=== PATIENT | male | born 1970 | race African-American/Black ===

== ENCOUNTER 2016-12-16 17:41 | Emergency (ER) | payer MEDICAID ==
[~2016-12-16] VITALS: Ht 182.9 cm; Wt 87.0 kg
[~2016-12-16 17:41] MED LIST: FLUT1DIS3 INH; albuterol; prozac; thorazine
[2016-12-16] MEDS ORDERED: SODIUM CHLORIDE FLUSH 10ML SYR IVF ONE (18:30)
[2016-12-16] MEDS ORDERED: IBUPROFEN 200 MG TABLET PO ONE (18:30)
[2016-12-16] MEDS ORDERED: SODIUM CHLORIDE 0.9% 1,000ML IVBOLUS ONE (18:30)
[2016-12-16] MEDS ORDERED: IBUPROFEN 200 MG TABLET ONE (18:31)
[2016-12-16 18:41] LABS: HEMOGLOBIN 14.1 g/dL (13.7-18.0)
[2016-12-16 18:52] LABS: BLOOD UREA NITROGEN 13 mg/dL (7-18)
[2016-12-16 19:00] LABS: DAU SCREEN DISCLAIMER
[2016-12-16 20:32] VITALS: BP 136/81
== END 2016-12-16 20:36 | disposition home or self-care (01) ==
LOC: ED 19:27
DX: R50.9 Fever, unspecified (principal); J44.9 Chronic obstructive pulmonary disease, unspecified; F17.200 Nicotine dependence, unspecified, uncomplicated
CPT/HCPCS: 36415; 71010; 80048; 80307; 81003; 82040; 83605; 84145; 85025; 87040; 96360; 99285; J7030

== ENCOUNTER 2017-02-18 15:03 | Emergency (ER) | payer MEDICAID ==
[~2017-02-18] VITALS: Ht 172.7 cm; Wt 71.4 kg
[2017-02-18 15:06] VITALS: BP 114/75
[2017-02-18] MEDS ORDERED: AZITHROMYCIN 500 MG TABLET PO ONE (15:30)
[2017-02-18] MEDS ORDERED: CEFTRIAXONE 250 MG IM ONE (15:30)
[2017-02-18] MEDS ORDERED: CEFTRIAXONE 250 MG ONE (16:01)
[2017-02-18] MEDS ORDERED: AZITHROMYCIN 500 MG TABLET ONE (16:01)
[2017-02-18] MEDS ORDERED: LIDOCAINE 1%, 20ML ONE (16:01)
== END 2017-02-18 16:32 | disposition home or self-care (01) ==
LOC: ED 16:00
DX: J45.40 Moderate persistent asthma, uncomplicated (principal); N34.2 Other urethritis
CPT/HCPCS: 81001; 87086; 87491; 87591; 96372; 99284; J0696

== ENCOUNTER 2017-03-21 02:38 | Emergency (ER) | payer MEDICAID ==
[~2017-03-21] VITALS: Ht 170.2 cm; Wt 75.0 kg
[2017-03-21] MEDS ORDERED: FLUO40CA9 PO (02:53)
[2017-03-21] MEDS ORDERED: ZIPR20CA2 PO (02:53)
[2017-03-21] MEDS ORDERED: ALBU0.63 NEB (02:54)
[2017-03-21] MEDS ORDERED: ALBUTEROL SULFATE 2.5 MG/3 ML ONE ×2 (03:18→03:24)
[2017-03-21] MEDS: ALBUTEROL 0.5%, 20ML NPPB SCH ×2 (03:28→03:29)
[2017-03-21] MEDS ORDERED: KETOROLAC 30 MG/1 ML ONE (04:12)
[2017-03-21 04:23] VITALS: BP 146/74
[2017-03-21] MEDS ORDERED: KETOROLAC 30 MG/1 ML IM ONE (04:30)
== END 2017-03-21 04:25 | disposition home or self-care (01) ==
LOC: ED 03:43
DX: J45.41 Moderate persistent asthma with (acute) exacerbation (principal)
CPT/HCPCS: 94640; 96372; 99283; J1885; J7512

== ENCOUNTER 2017-04-01 11:50 | Emergency (ER) | payer OTHER, MEDICAID ==
[~2017-04-01] VITALS: Ht 170.2 cm; Wt 74.0 kg
[~2017-04-01 11:50] MED LIST changes: +ALBU0.63 NEB; +FLUO40CA9 PO; +ZIPR20CA2 PO
[2017-04-01] MEDS ORDERED: DIAZEPAM 5 MG TABLET PO ONE (12:30)
[2017-04-01] MEDS ORDERED: KETOROLAC 30 MG/1 ML IM ONE (12:30)
[2017-04-01] MEDS ORDERED: DIAZEPAM 5 MG TABLET ONE (12:33)
[2017-04-01] MEDS ORDERED: KETOROLAC 30 MG/1 ML ONE (12:33)
[2017-04-01 14:14] VITALS: BP 99/57
== END 2017-04-01 14:15 | disposition home or self-care (01) ==
LOC: ED 14:00
DX: S39.012A Strain of muscle, fascia and tendon of lower back, initial encounter (principal); F17.200 Nicotine dependence, unspecified, uncomplicated; J44.9 Chronic obstructive pulmonary disease, unspecified; J43.9 Emphysema, unspecified; F43.10 Post-traumatic stress disorder, unspecified; W19.XXXA Unspecified fall, initial encounter; Y93.89 Activity, other specified; Y92.89 Other specified places as the place of occurrence of the external cause; Y99.8 Other external cause status
CPT/HCPCS: 72110; 96372; 99284; J1885

== ENCOUNTER 2019-01-14 15:17 | Emergency (ER) | payer MEDICAID ==
[~2019-01-14] VITALS: Ht 170.2 cm; Wt 81.5 kg
[2019-01-14] MEDS ORDERED: ALBUTEROL/IPRATROPIUM 2.5MG/0.5MG, 3 ML NPPB ONE (15:30)
--- NOTE | 2019-01-14 16:59 | NUR ---
FROM LOBBY TO ROOM AT THIS TIME
[2019-01-14] MEDS ORDERED: ALBUTEROL/IPRATROPIUM 2.5MG/0.5MG, 3 ML ONE (17:14)
[2019-01-14 17:50] VITALS: BP 141/64
--- NOTE | 2019-01-14 17:58 | NUR ---
Patient/Caregiver given discharge instructions and they have confirmed that they understand the instructions. Patient ambulatory with steady gait. Pt left with all personal belongings.
== END 2019-01-14 18:00 | disposition home or self-care (01) ==
LOC: ED 17:45
DX: J45.41 Moderate persistent asthma with (acute) exacerbation (principal); F20.9 Schizophrenia, unspecified; F17.200 Nicotine dependence, unspecified, uncomplicated
CPT/HCPCS: 71046; 94640; 99283; J7512; J7620

== ENCOUNTER 2019-02-23 15:52 | Emergency (ER) | payer MEDICAID ==
[2019-02-23 16:00] VITALS: BP 128/87
[2019-02-23] MEDS ORDERED: ALBUTEROL/IPRATROPIUM 2.5MG/0.5MG, 3 ML NPPB ONE (16:30)
[2019-02-23] MEDS ORDERED: ALBUTEROL/IPRATROPIUM 2.5MG/0.5MG, 3 ML ONE (16:37)
--- NOTE | 2019-02-23 16:48 | NUR ---
DC EDUCATION PROVIDED, PT DEMONSTRATES UNDERSTANDING. PT AMBULATED STEADILY TO DC WITH RN. Addendum: 02/23/19 at 1648 by STEPHANI PT REPORTS IMPROVEMENT IN S/S WITH BREATHING TX.
== END 2019-02-23 16:49 | disposition home or self-care (01) ==
LOC: ED 16:35
DX: J44.1 Chronic obstructive pulmonary disease with (acute) exacerbation (principal); R05 Cough; Z76.0 Encounter for issue of repeat prescription; Z87.891 Personal history of nicotine dependence
CPT/HCPCS: 94640; 99283; J7620

== ENCOUNTER 2019-03-24 20:15 | Emergency (ER) | payer MEDICAID ==
[~2019-03-24] VITALS: Ht 170.2 cm; Wt 81.2 kg
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
--- NOTE | 2019-03-24 20:51 | NUR ---
Physician vet assistant to bedside assessment complete; awaiting orders.
--- NOTE | 2019-03-24 20:57 | NUR ---
TP RN: RT PAGED
[2019-03-24] MEDS ORDERED: ALBUTEROL/IPRATROPIUM 2.5MG/0.5MG, 3 ML NPPB ONE (21:00)
--- NOTE | 2019-03-24 21:00 | NUR ---
PT PRESENTS WITH SOB, TACHYPNEA AND OCCASIONAL COUGH. PT STATES THIS IS NORMAL FOR HIM SINCE HE WALKED HERE. PT TO IMAGING AT THIS TIME.
[2019-03-24 21:21] VITALS: BP 108/72
--- NOTE | 2019-03-24 21:23 | NUR ---
RN and RT to bedside' administered meds per oct; breathing treatment adminstered after meds; awaiting results of labs and rads.
--- NOTE | 2019-03-24 22:15 | NUR ---
REPORT FROM MARYANN EVANS. PT RESTING AND WILL BE DISCHARGED. CALL LIGHT IN REACH
--- NOTE | 2019-03-24 22:22 | NUR ---
Patient given discharge instructions and they have confirmed that they understand the instructions. Patient ambulatory with steady gait.
== END 2019-03-24 22:42 | disposition home or self-care (01) ==
LOC: ED 21:47
DX: G89.11 Acute pain due to trauma (principal); M79.651 Pain in right thigh; J98.01 Acute bronchospasm; F43.10 Post-traumatic stress disorder, unspecified; F20.9 Schizophrenia, unspecified; X58.XXXA Exposure to other specified factors, initial encounter; Y93.89 Activity, other specified; Y92.410 Unspecified street and highway as the place of occurrence of the external cause; Y99.8 Other external cause status
CPT/HCPCS: 71045; 73552; 93005; 94640; 99283; J7512; J7620

== ENCOUNTER 2019-05-14 00:52 | Emergency (ER) | payer MEDICAID ==
[~2019-05-14] VITALS: Ht 170.2 cm; Wt 78.0 kg
[2019-05-14] MEDS ORDERED: ALBUTEROL SULFATE 2.5 MG/3 ML NPPB ONE ×2 (01:00→02:30)
[2019-05-14 01:07] VITALS: BP 118/78
[2019-05-14 01:19] LABS: BASOPHILS # (AUTO) 0.01 x10^3/uL (0-0.1); BASOPHILS % (AUTO) 0 % (0-1); EOSINOPHILS # (AUTO) 0.31 x10^3/uL (0-0.4); EOSINOPHILS % (AUTO) 5 % (1-7); LYMPHOCYTES # (AUTO) 1.43 x10^3/uL (1-3.4); LYMPHOCYTES % (AUTO) 22 % (22-44); MD NO; MEAN CORPUSCULAR HEMOGLOBIN 31.1 pg (27.5-34.5); MEAN CORPUSCULAR HGB CONC 33.6 g/dL (33.2-36.2); MEAN CORPUSCULAR VOLUME 92.5 fL (81-97); MEAN PLATELET VOLUME 7.1 fL (7.4-10.4); MONOCYTES # (AUTO) 0.77 x10^3/uL (0.2-0.8); MONOCYTES % (AUTO) 12 % (2-9); NEUTROPHILS % (AUTO) 62 % (42-75); PLATELET COUNT 345 x10^3/uL (130-400); RED BLOOD COUNT 4.36 x10^6/uL (4.38-5.82); RED CELL DISTRIBUTION WIDTH 14.1 % (9.4-14.8)
--- NOTE | 2019-05-14 01:21 | NUR ---
sob that started today. pt with labored breathing in some distress. pt straight back to a room. rt at bedside. pt attached to all monitors. hx copd, chronic bronchitis, asthma.
[2019-05-14 01:27] LABS: ALBUMIN 3.2 g/dL (3.4-5.0); ANION GAP 7 mmol/L (5-15); CALCIUM 8.5 mg/dL (8.5-10.1); CHLORIDE 109 mmol/L (98-107); CREATININE 1.12 mg/dL (0.7-1.3)
[2019-05-14 01:31] LABS: TROPONIN I < 0.015 ng/mL (0.000-0.045)
--- NOTE | 2019-05-14 02:06 | NUR ---
pt ambulatory to the bathroom with steady gait. pt work of breathing has decreased since arriving in ED
--- NOTE | 2019-05-14 02:20 | NUR ---
pt resting on gurney with eyes closed. no acute distress noted. respirations even and unlabored. pt reports he feels much better and can breath easier after second breathing treatment. pt tbdc
== END 2019-05-14 02:41 | disposition home or self-care (01) ==
LOC: ED 02:36
DX: J44.1 Chronic obstructive pulmonary disease with (acute) exacerbation (principal)
CPT/HCPCS: 36415; 71045; 80048; 82040; 84484; 85025; 93005; 94640; 99284; J7512; J7613

== ENCOUNTER 2019-06-26 21:12 | Emergency (ER) | payer MEDICAID ==
[~2019-06-26] VITALS: Ht 170.2 cm; Wt 79.6 kg
[2019-06-26 21:14] VITALS: BP 143/96
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
--- NOTE | 2019-06-26 21:42 | NUR ---
Security consulted and informed this rn to keep in decon room or put in alcove. Bike to be kept in decon room.
[2019-06-26 22:04] LABS: BASOPHILS # (AUTO) 0.03 x10^3/uL (0-0.1); BASOPHILS % (AUTO) 1 % (0-1); EOSINOPHILS # (AUTO) 0.32 x10^3/uL (0-0.4); EOSINOPHILS % (AUTO) 6 % (1-7); LYMPHOCYTES # (AUTO) 2.18 x10^3/uL (1-3.4); LYMPHOCYTES % (AUTO) 43 % (22-44); MD NO; MEAN CORPUSCULAR HEMOGLOBIN 30.7 pg (27.5-34.5); MEAN CORPUSCULAR HGB CONC 32.5 g/dL (33.2-36.2); MEAN CORPUSCULAR VOLUME 94.5 fL (81-97); MEAN PLATELET VOLUME 7.4 fL (7.4-10.4); MONOCYTES # (AUTO) 0.49 x10^3/uL (0.2-0.8); MONOCYTES % (AUTO) 10 % (2-9); NEUTROPHILS # (AUTO) 2.11 x10^3/uL (1.8-6.8); NEUTROPHILS % (AUTO) 41 % (42-75); PLATELET COUNT 268 x10^3/uL (130-400); RED BLOOD COUNT 4.34 x10^6/uL (4.38-5.82); RED CELL DISTRIBUTION WIDTH 14.2 % (9.4-14.8)
[2019-06-26 22:15] LABS: AMPHETAMINE SCREEN, URINE Positive (Negative); BARBITURATE SCREEN, URINE Negative (Negative); BENZODIAZEPINE SCREEN, URINE Negative (Negative); CANNABINOID SCREEN, URINE Negative (Negative); COCAINE SCREEN, URINE Negative (Negative); METHADONE SCREEN, URINE Negative (Negative); OPIATE SCREEN, URINE Negative (Negative)
--- NOTE | 2019-06-26 22:21 | NUR ---
Pt sleeping comfortably. Rr even and unlabored. Nadn. Awaiting lab results and telepsych.
[2019-06-26 22:29] LABS: ALKALINE PHOSPHATASE 89 U/L (45-117); BILIRUBIN,TOTAL 0.2 mg/dL (0.2-1.0); TOTAL PROTEIN 6.6 g/dL (6.4-8.2)
[2019-06-26 22:31] LABS: SALICYLATE LEVEL < 1.7 mg/dL (2.8-20.0)
[2019-06-26 22:33] LABS: ALANINE AMINOTRANSFERASE 31 U/L (12-78); ALBUMIN 3.3 g/dL (3.4-5.0); ANION GAP 2 mmol/L (5-15); CALCIUM 8.6 mg/dL (8.5-10.1); CHLORIDE 110 mmol/L (98-107)
--- NOTE | 2019-06-26 22:42 | NUR ---
SPOKE TO ARISTIDES Gupta WHOM STATES THEY DO NOT ACCEPT [facility] BUT SHE WILL CALL REGISTRATION TO CONFIRM THIS IS HIS ONLY INSURANCE.
--- NOTE | 2019-06-26 22:45 | NUR ---
ARISTIDES FROM CALLED AND DECLINED ADMISSION DUE TO INSURANCE.
--- NOTE | 2019-06-26 22:50 | NUR ---
TP RN: [facility] PAGED. SPOKE WITH DR PRECIADO. NO MOBILE TEAM AT NIGHT. WOULD LIKE PT SENT TO [facility]. DR DELGADILLO AWARE. PT IS ON A HOLD.
--- NOTE | 2019-06-26 22:51 | NUR ---
TP RN: NO 3E DUE TO INSURANCE
[2019-06-26] MEDS ORDERED: ZIPRASIDONE 20MG CAPSULE PO ONE (23:00)
--- NOTE | 2019-06-26 23:00 | NUR ---
Pt refused medications. "i already took my geodon before i came."
--- NOTE | 2019-06-26 23:23 | NUR ---
Pt sleeping comfortably. Rr even and unlabored. Nadn. Awaiting lab results and telepsych.
--- NOTE | 2019-06-26 23:56 | NUR ---
Patient with medicaid [facility]. MTM called and all information provided. Awaiting call from [facility] for ETA at this time.
--- NOTE | 2019-06-26 23:57 | NUR ---
Patient accepted at [facility] by Dr. Alford and accepting worker
--- NOTE | 2019-06-27 00:18 | NUR ---
Acceptance code for [facility]: [id number]
--- NOTE | 2019-06-27 00:22 | NUR ---
Attempted to call [facility] for nurse to nurse, [facility] states "the nurse will have to call you back."
--- NOTE | 2019-06-27 00:30 | NUR ---
[facility] now called back after originally telling this MT that they were ready for the patient and state that they do not have orders to take the patient yet. They ask that [facility] transport be delayed until they have orders. [facility] called and patient now placed in willcall until [facility] calls back and states they are ready for the patient. Patient's MTM already verified so therefore when [facility] calls back [facility] can be called and patients transport is already arranged and ready for immediate transport to [facility].
--- NOTE | 2019-06-27 00:59 | NUR ---
No immediate needs. Sitter in hallway. Roller doors in place.
--- NOTE | 2019-06-27 01:12 | NUR ---
Called report to Carmela ordonez, "i have to call our psychiatrist and get orders before he can come here."
--- NOTE | 2019-06-27 01:22 | NUR ---
[facility] called back and state that Dr. Alford is accepting patient, even though this was already known hours ago and patient can be taken there at 3am. [facility] paged and informed patient is ready for transport at 3am.
--- NOTE | 2019-06-27 02:04 | NUR ---
Pt given food per request.
--- NOTE | 2019-06-27 02:43 | NUR ---
Pt given more food per request.
--- NOTE | 2019-06-27 03:29 | NUR ---
No immediate needs. Sitter in hallway. Roller doors in place.
--- NOTE | 2019-06-27 03:34 | NUR ---
[facility] CALLED AND STATES NEW ETA IS UNKNOWN AT THIS TIME DUE TO HIGH CALL VOLUME.
== END 2019-06-27 04:05 ==
LOC: ED 21:38
DX: F32.9 Major depressive disorder, single episode, unspecified (principal); R45.851 Suicidal ideations; J44.9 Chronic obstructive pulmonary disease, unspecified; F17.200 Nicotine dependence, unspecified, uncomplicated; F20.9 Schizophrenia, unspecified
CPT/HCPCS: 36415; 80053; 80307; 84443; 85025; 93005; 99285

== ENCOUNTER 2019-12-18 06:10 | Emergency (ER) | payer MEDICAID ==
[~2019-12-18] VITALS: Ht 170.2 cm; Wt 75.8 kg
[2019-12-18 06:15] VITALS: BP 139/66
--- NOTE | 2019-12-18 06:25 | NUR ---
pt currently talking with registration updating information, speaking in full clear sentances with no signs distress. Is AA and O times 4. Has been feeling this way for 4 days
[2019-12-18 07:36] LABS: BASOPHILS # (AUTO) 0.02 x10^3/uL (0-0.1); BASOPHILS % (AUTO) 0 % (0-1); EOSINOPHILS # (AUTO) 0.27 x10^3/uL (0-0.4); EOSINOPHILS % (AUTO) 5 % (1-7); LYMPHOCYTES # (AUTO) 0.83 x10^3/uL (1-3.4); LYMPHOCYTES % (AUTO) 15 % (22-44); MD NO; MEAN CORPUSCULAR HGB CONC 33.1 g/dL (33.2-36.2); MEAN CORPUSCULAR VOLUME 93.7 fL (81-97); MONOCYTES # (AUTO) 0.43 x10^3/uL (0.2-0.8); MONOCYTES % (AUTO) 7 % (2-9); NEUTROPHILS # (AUTO) 4.19 x10^3/uL (1.8-6.8); NEUTROPHILS % (AUTO) 73 % (42-75); PLATELET COUNT 203 x10^3/uL (130-400); RED CELL DISTRIBUTION WIDTH 13.4 % (9.4-14.8)
[2019-12-18 07:44] LABS: ALANINE AMINOTRANSFERASE 61 U/L (12-78); ALBUMIN 3.4 g/dL (3.4-5.0); ANION GAP 4 mmol/L (5-15); CALCIUM 8.4 mg/dL (8.5-10.1); CHLORIDE 111 mmol/L (98-107); CREATININE 1.07 mg/dL (0.7-1.3)
[2019-12-18 07:46] LABS: ALKALINE PHOSPHATASE 75 U/L (45-117); BILIRUBIN,TOTAL 0.6 mg/dL (0.2-1.0); TOTAL PROTEIN 6.7 g/dL (6.4-8.2)
[2019-12-18 07:47] LABS: RAPID INFLUENZA A Negative (Negative); RAPID INFLUENZA B Negative (Negative)
== END 2019-12-18 08:24 | disposition home or self-care (01) ==
LOC: ED 06:21
DX: J06.9 Acute upper respiratory infection, unspecified (principal); J02.9 Acute pharyngitis, unspecified; M79.642 Pain in left hand; R10.9 Unspecified abdominal pain; J43.9 Emphysema, unspecified
CPT/HCPCS: 36415; 71045; 80053; 85025; 87081; 87400; 87880; 99284

== ENCOUNTER 2019-12-18 18:24 | Emergency (ER) | payer MEDICAID ==
[~2019-12-18] VITALS: Ht 167.6 cm; Wt 81.8 kg
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
[2019-12-18] MEDS ORDERED: ZIPRASIDONE 20MG CAPSULE PO ONE (19:00)
[2019-12-18] MEDS ORDERED: LORazepam 1MG TABLET PO ONE (19:00)
[2019-12-18] MEDS ORDERED: LORazepam 1MG TABLET ONE (19:06)
[2019-12-18] MEDS ORDERED: ZIPRASIDONE 20 MG INJ IM ONE (19:08)
--- NOTE | 2019-12-18 19:28 | NUR ---
MEDS ADMINISTERTED W/OUT DIFF. KLEENEX FOR STUFFY NOSE. PB&J SANDWICH GIVEN, PT RESTING IN BED, ROCKING BACK AND FORTH AND TALKING TO THE CEILING.
--- NOTE | 2019-12-18 20:31 | NUR ---
PT SLEEPING SOUNDLY. WILL AWAKE FOR VITALS, AND INSTRUCTED AGAIN ON NEED FOR URINE FOR TESTING. URINAL AT BEDSIDE. WILL CONTINUE TO MONITOR.
--- NOTE | 2019-12-18 22:04 | NUR ---
PT URINATED ON GOWN, PT EDUCATED TO URINATE IN URNAL. PT GOWN CHANGED
--- NOTE | 2019-12-18 23:22 | NUR ---
PT RESTING IN BED, PT PROVIDED A BLANKET AND PILLOW FOR PT COMFORT.
[2019-12-19 01:21] LABS: AMPHETAMINE SCREEN, URINE Negative (Negative); BARBITURATE SCREEN, URINE Negative (Negative); BENZODIAZEPINE SCREEN, URINE Negative (Negative); CANNABINOID SCREEN, URINE Negative (Negative); COCAINE SCREEN, URINE Negative (Negative); METHADONE SCREEN, URINE Negative (Negative); OPIATE SCREEN, URINE Negative (Negative)
--- NOTE | 2019-12-19 01:45 | NUR ---
SLEEPING QUIETLY, RESP RATE EVEN AND REGULAR, WATER AT BEDSIDE, SIDE RAILS UP TIMES TWO FOR PT SAFETY, CALL HERNANDEZ IN REACH AND WARM BLANKET GIVEN.
--- NOTE | 2019-12-19 05:16 | NUR ---
PT RESTING IN BED, PT SLEPT THREW THE NIGHT. PT HAS NO COMPLAINTS OR WANTS AT THIS TIME.
[2019-12-19 05:18] VITALS: BP 136/79
== END 2019-12-19 06:13 | disposition home or self-care (01) ==
LOC: ED 18:30
DX: F15.259 Other stimulant dependence with stimulant-induced psychotic disorder, unspecified (principal); Z72.9 Problem related to lifestyle, unspecified; J43.9 Emphysema, unspecified; F20.9 Schizophrenia, unspecified
CPT/HCPCS: 80307; 99283

== ENCOUNTER 2020-01-19 23:50 | Emergency (ER) | payer MEDICAID ==
[~2020-01-19] VITALS: Ht 170.2 cm; Wt 78.0 kg
--- NOTE | 2020-01-20 00:15 | NUR ---
urine sample taken to lab. pt's personal belongings placed in security locker ( x 3 bags). garage doors closed, room secured, sitter at doorway for continous monitoring
[2020-01-20] MEDS ORDERED: ZIPRASIDONE 20 MG INJ IM ONE ×3 (00:19→13:42)
--- NOTE | 2020-01-20 00:27 | NUR ---
pt medicated per mar
[2020-01-20] MEDS ORDERED: ZIPR40CA2 PO (00:32)
[2020-01-20 00:35] LABS: AMPHETAMINE SCREEN, URINE Positive (Negative); BARBITURATE SCREEN, URINE Negative (Negative); BENZODIAZEPINE SCREEN, URINE Negative (Negative); CANNABINOID SCREEN, URINE Positive (Negative); COCAINE SCREEN, URINE Negative (Negative); METHADONE SCREEN, URINE Negative (Negative); OPIATE SCREEN, URINE Negative (Negative)
[2020-01-20 00:35] LABS: BASOPHILS # (AUTO) 0.02 x10^3/uL (0-0.1); BASOPHILS % (AUTO) 0 % (0-1); EOSINOPHILS # (AUTO) 0.21 x10^3/uL (0-0.4); EOSINOPHILS % (AUTO) 3 % (1-7); LYMPHOCYTES # (AUTO) 2.72 x10^3/uL (1-3.4); LYMPHOCYTES % (AUTO) 34 % (22-44); MD NO; MEAN CORPUSCULAR HEMOGLOBIN 30.8 pg (27.5-34.5); MEAN CORPUSCULAR HGB CONC 33.5 g/dL (33.2-36.2); MEAN PLATELET VOLUME 7.1 fL (7.4-10.4); MONOCYTES # (AUTO) 0.73 x10^3/uL (0.2-0.8); MONOCYTES % (AUTO) 9 % (2-9); NEUTROPHILS # (AUTO) 4.29 x10^3/uL (1.8-6.8); NEUTROPHILS % (AUTO) 54 % (42-75); PLATELET COUNT 320 x10^3/uL (130-400); RED BLOOD COUNT 4.41 x10^6/uL (4.38-5.82); RED CELL DISTRIBUTION WIDTH 13.7 % (9.4-14.8)
[2020-01-20 00:36] LABS: ALBUMIN 3.7 g/dL (3.4-5.0); ANION GAP 6 mmol/L (5-15); CALCIUM 8.8 mg/dL (8.5-10.1); CHLORIDE 110 mmol/L (98-107); SALICYLATE LEVEL < 1.7 mg/dL (2.8-20.0)
[2020-01-20 00:47] LABS: ALANINE AMINOTRANSFERASE 49 U/L (12-78); ALKALINE PHOSPHATASE 86 U/L (45-117); BILIRUBIN,TOTAL 0.5 mg/dL (0.2-1.0); CREATININE 1.35 mg/dL (0.7-1.3); TOTAL PROTEIN 7.7 g/dL (6.4-8.2)
--- NOTE | 2020-01-20 02:13 | NUR ---
pt resting calmly with eyes closed, nad, equal chest rise/fall observed, sitter at doorway for continous monitoring
--- NOTE | 2020-01-20 02:45 | NUR ---
SOC ON TELEPHONE, THIS RN UPDATED MD ON PT STATUS, LABS, VS, AMEDICATIONS. SOC TO CONSULT WITH PT
--- NOTE | 2020-01-20 02:47 | NUR ---
TELEPSYCH CONSULT IN PROGRESS
--- NOTE | 2020-01-20 03:10 | NUR ---
PT RESTING WITH EYES CLOSED, EQUAL CHEST RISE/FALL OBSERVEDD, SITTER AT DOORWAY FOR CONTINOUS MONITORING
--- NOTE | 2020-01-20 03:48 | NUR ---
REPORT GIVEN TO CRISTINA DAVISON
--- NOTE | 2020-01-20 04:25 | NUR ---
Pt resting comfortably, respirations even and unlabored. Sitter in direct line of sight.
--- NOTE | 2020-01-20 04:34 | NUR ---
Spoke to Andrew Tellez regarding admission, awaiting call back.
--- NOTE | 2020-01-20 08:09 | NUR ---
patient awake, got him breakfast and he is calmly eating breakfast. ordered him a hospital bed from housekeeping. patient believes "mayra is out to get him, they are following me because I am different". listened. vss
--- NOTE | 2020-01-20 08:39 | NUR ---
patient got on hospital bed,
--- NOTE | 2020-01-20 10:24 | NUR ---
THROUGHPUT: [facility] CALLED AND DECLINE PATIENT
--- NOTE | 2020-01-20 10:30 | NUR ---
patient breathlyzer done, 0.0. patient sleeping in bed. calm.
--- NOTE | 2020-01-20 11:50 | NUR ---
patient awake and anxious. he wants toothbrush and sprite and pain meds for a headache. working on all three, got him first two. he is restless but cooperating.
[2020-01-20] MEDS ORDERED: LORazepam 1MG TABLET ONE (12:00)
[2020-01-20] MEDS ORDERED: LORazepam 1MG TABLET PO ONE (12:00)
--- NOTE | 2020-01-20 12:00 | NUR ---
patient quickly escalating. he is pacing in room. angry that the sprite he got isn't 22ounces. asked for his things to make phone calls and getting louder and angrier about situation. aidet. listened. talked to Rickey PARIS about it, and ativan ordered and given. will monitor.
--- NOTE | 2020-01-20 12:21 | NUR ---
PATIENT ATE ALL OF LUNCH. NOW SAYING HIS SANDWICH DRY, AND HE NEEDS MORE SPRITE, HE STILL WANTS TO CALL A LONG LIST OF PEOPLE. GOT HIM ANOTHER SPRITE AND APOLOGIZED ABOUT DRYNESS OF SANDWICH. HE IS NOW TALKING TO BEHAVIORAL HEALTH
--- NOTE | 2020-01-20 12:55 | NUR ---
patient in room, awake and cooperative.
[2020-01-20] MEDS: ZIPRASIDONE 20 MG INJ IM PRN (13:53)
--- NOTE | 2020-01-20 14:54 | NUR ---
returned from lunch. patient is resting quietly, sitter outside room
--- NOTE | 2020-01-20 14:55 | NUR ---
returned from lunch, patient resting quietly sitter outside room.
--- NOTE | 2020-01-20 16:14 | NUR ---
PATIENT HELPED TO BATHROOM. NO COMPLICATIONS
--- NOTE | 2020-01-20 17:39 | NUR ---
patient dinner delivered, he's resting quietly. didn't wake him. snoring and free of distress.
--- NOTE | 2020-01-20 18:22 | NUR ---
patient eating dinner, got him jamin/esther/andrea. aox4 calm
--- NOTE | 2020-01-20 19:12 | NUR ---
REPORT FROM CRISTINA SEGURA
--- NOTE | 2020-01-20 19:53 | NUR ---
PT RESTING ON HOSPITAL BED, WATCHING TV. SITTER AT DOORWAY.
--- NOTE | 2020-01-21 00:52 | NUR ---
PT UP IN ROOM. PT PROVIDED A SANDWICH FROM LEFTOVERS IN BREAK ROOM. PT POLITE AND RESPECTFUL. SITTER AT DOORWAY
--- NOTE | 2020-01-21 01:52 | NUR ---
PT RESTING ON HOSPTIAL BED WITH EYES CLOSED. RESPIRATIONS EVEN AND UNLABORED. SITTER AT DOORWAY
[2020-01-21] MEDS ORDERED: ZIPRASIDONE 20 MG INJ IM ONE ×3 (04:09→21:33)
[2020-01-21] MEDS: ZIPRASIDONE 20 MG INJ IM PRN ×3 (04:13→21:50)
--- NOTE | 2020-01-21 04:19 | NUR ---
PT RESQUESTING GEODON BECAUSE HE IS SAYS HE IS STARTING TO FEEL AGGITATED. PT MEDICATED PER EMAR WITH STANDING ORDERS.
--- NOTE | 2020-01-21 06:02 | NUR ---
PT RESTING ON HOSPTIAL BED WITH EYES CLOSED. RESPIRATIONS EVEN AND UNLABORED. SITTER AT DOORWAY
--- NOTE | 2020-01-21 07:00 | NUR ---
SBAR RPT REC'D, ASSUMED PT CARE. PT SLEEPING, RESP EVEN NON-LABORED. SITTER AT DOORWAY WITH PT IN VIEW. ROOM SECURED. BREAKFAST TRAY ORDERED.
--- NOTE | 2020-01-21 08:28 | NUR ---
PT AROUSES TO VERBAL STIMULI AND IS PLEASANT, COOPERATIVE. VSS NOTED. SI BREAKFAST TRAY PROVIDED AND SET UP. DAILY ROUTINE, MEDS, DISCUSSED. PLAN FOR SHOWER AFTER BREAKFAST DISCUSSED. SITTER AWARE. SHOWER ROOM SET UP AND READY WHEN PT IS DONE WITH BREAKFAST.
--- NOTE | 2020-01-21 08:59 | NUR ---
PT ATE 100% OF MEAL. OOB AND AMBULATED TO SHOWER ROOM WITH SITTER. SHOWER COMPLETED AND PT RTD TO ROOM W/O INCIDENT. COMPLETE BED LINEN CHANGE. CALL LIGHT W/I REACH, ROOM SECURED, SITTER AT DOORWAY WITH PT IN VIEW.
--- NOTE | 2020-01-21 09:52 | NUR ---
JACOB STARBUCK DENIED PT
--- NOTE | 2020-01-21 10:04 | NUR ---
REPORT RECEIVED FROM RAUL EVANS. PT IS RESTING ON [place] W/ SITTER OUTSIDE ROOM AND GARAGE DOORS DOWN FOR SAFETY. PER RAUL EVANS PT HAS BEEN COOPERATIVE, SHOWERED AND LINENS CHANGED. WILL CONTINUE TO MONITOR.
--- NOTE | 2020-01-21 11:00 | NUR ---
PT RESTING ON GURNEY WATCHING TV, RESP EVEN AND UNLABORED, NADN. SITTER OUTSIDE ROOM, GARAGE DOORS DOWN.
--- NOTE | 2020-01-21 13:12 | NUR ---
JANESSA RICH AT BEDSIDE.
--- NOTE | 2020-01-21 13:41 | NUR ---
PT SLEEPING ON [place]. CHEST RISE AND FALL OBSERVED. SITTER OUTSIDE ROOM. GARAGE DOORS DOWN.
--- NOTE | 2020-01-21 15:04 | NUR ---
PT SLEEPING ON [place]. CHEST RISE AND FALL OBSERVED. SITTER OUTSIDE ROOM. GARAGE DOORS DOWN.
--- NOTE | 2020-01-21 17:16 | NUR ---
PT SLEEPING ON [place]. CHEST RISE AND FALL OBSERVED. SITTER OUTSIDE ROOM. GARAGE DOORS DOWN.
--- NOTE | 2020-01-21 18:16 | NUR ---
PT SLEEPING [place]. CHEST RISE AND FALL OBSERVED. SITTER OUTSIDE ROOM. GARAGE DOORS DOWN.
--- NOTE | 2020-01-21 18:30 | NUR ---
PT PROVIDED DINNER TRAY.
--- NOTE | 2020-01-21 19:08 | NUR ---
PT SLEEPING ON [place]. CHEST RISE AND FALL OBSERVED. SITTER OUTSIDE ROOM. GARAGE DOORS DOWN.
--- NOTE | 2020-01-21 20:23 | NUR ---
PT RESTING ON GURNEY, WATCHING TV. RESP EVEN AND UNLABORED, NADN. SITTER OUTSIDE ROOM, GARAGE DOORS DOWN.
--- NOTE | 2020-01-21 21:11 | NUR ---
PT RESTING ON GURNEY, WATCHING TV. RESP EVEN AND UNLABORED, NADN. SITTER OUTSIDE ROOM, GARAGE DOORS DOWN.
--- NOTE | 2020-01-21 21:39 | NUR ---
PT IN DOORWAY ASKING IF HE CAN WALK UP AND DOWN THE [place] WHERE SITTER CAN SEE HIM. PT INFORMED HE MAY NOT DUE TO PT PRIVACY. PT REQ ORDERED MEDS AND PROZAC.
--- NOTE | 2020-01-21 23:28 | NUR ---
PT SLEEPING IN HOSPITAL BED WITH TV ON. NO ACUTE DISTRESS NOTED. SITTER AT DOORWAY AND WILL CONT TO MONITOR.
--- NOTE | 2020-01-22 03:11 | NUR ---
PT SLEEPING ON HOSPITAL BED. NO NEEDS EXPRESSED AT THIS TIME. SITTER AT DOORWAY AND WILL CONT TO MONITOR.
--- NOTE | 2020-01-22 05:04 | NUR ---
PT SLEEPING. RR EVEN NON LABORED. SITTER OUTSIDE OF ROOM. WILL CTM.
--- NOTE | 2020-01-22 07:02 | NUR ---
SBAR HAND-OFF REPORT RECEIVED FROM CRISTINA CARVALHO. ASSUMING CARE OF PATIENT.
[2020-01-22 09:42] VITALS: BP 140/90
--- NOTE | 2020-01-22 12:18 | NUR ---
LUNCH TRAY SERVED TO PATIENT. MENTAL HEALTH HEART COORDINATOR JANESSA AT BEDSIDE SEEING PATIENT.
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
== END 2020-01-22 15:29 | disposition home or self-care (01) ==
LOC: ED 01-20 00:12 → EDIP 01-20 14:37 → UNDOADMIN 01-20 14:37 → ED 01-22 15:29
DX: R45.851 Suicidal ideations (principal); F32.9 Major depressive disorder, single episode, unspecified; F15.129 Other stimulant abuse with intoxication, unspecified; R45.850 Homicidal ideations; F10.129 Alcohol abuse with intoxication, unspecified; Z72.9 Problem related to lifestyle, unspecified; F12.10 Cannabis abuse, uncomplicated; F20.9 Schizophrenia, unspecified; J44.9 Chronic obstructive pulmonary disease, unspecified; F17.200 Nicotine dependence, unspecified, uncomplicated; Y90.9 Presence of alcohol in blood, level not specified
CPT/HCPCS: 36415; 80053; 80307; 84443; 85025; 96372; 99285; J3486